=== PATIENT | male | born 1950 | race African-American/Black ===

== ENCOUNTER 2019-04-26 13:35 | Inpatient (IN) | payer MEDICARE, OTHER ==
[~2019-04-26] VITALS: Ht 172.7 cm; Wt 69.9 kg
--- NOTE | 2019-04-26 13:35 | NUR ---
Patient is here in our ER department for medical clearance by our ER doctor. This patient is accepted by Dr Olguin (psych doctor) for admission to our MHU/geriatric psych unit. WALTER Abel will be the assigned hospitalist for internal medicine needs of this patient. Addendum: 04/26/19 at 1657 by CSALE correction: Dr Olguin (psych) & EPIC documentation clerk hospitalist (WALTER Caicedo, not WALTER Abel) to care for this patient during the MHU admission.
[2019-04-26] MEDS ORDERED: BUSP15TA3 PO (13:47)
[2019-04-26] MEDS ORDERED: SERT50TA12 PO (13:47)
[2019-04-26] MEDS ORDERED: LAMO25TA5 PO (13:47)
--- NOTE | 2019-04-26 14:00 | NUR ---
PT WANDED BY FIRE PREVENTION CHIEF.
--- NOTE | 2019-04-26 14:21 | NUR ---
Patient is medically cleared by Dr Fong, pending urine sample still, endorsed to [facility] nurse Sergio and Alejandra accordingly.
[2019-04-26 14:29] LABS: BASOPHILS # (AUTO) 0.1 K/uL (0.0-8.0); BASOPHILS % (AUTO) 1.5 % (0.0-2.0); EOSINOPHILS # (AUTO) 0.2 K/uL (0.0-0.7); EOSINOPHILS % (AUTO) 6.2 % (0.0-7.0); HEMATOCRIT 44.2 % (36.7-47.1); HEMOGLOBIN 14.7 g/dL (12.5-16.3); LYMPHOCYTES # (AUTO) 1.4 K/uL (20.0-40.0); LYMPHOCYTES % (AUTO) 34.6 % (20.5-51.5); MEAN CORPUSCULAR HEMOGLOBIN 31.2 uug (23.8-33.4); MEAN CORPUSCULAR HGB CONC 33 g/dL (32.5-36.3); MONOCYTES # (AUTO) 0.4 K/uL (2.0-10.0); MONOCYTES % (AUTO) 9.6 % (0.0-11.0); NEUTROPHILS # (AUTO) 1.9 K/uL (1.8-8.9); NEUTROPHILS % (AUTO) 48.1 % (38.5-71.5); PLATELET COUNT (AUTO) 241 K/uL (152-348); RED BLOOD CELL COUNT(AUTO) 4.71 MIL/uL (4.06-5.63); WHITE BLOOD COUNT (AUTO) 3.9 K/uL (3.6-10.2)
[2019-04-26 14:32] LABS: CARBON DIOXIDE 23 mmol/L (21-32); CHLORIDE 109 mmol/L (98-107); GLUCOSE 100 mg/dL (74-106); POTASSIUM 3.7 mmol/L (3.5-5.1); UREA NITROGEN, BLOOD 16 mg/dL (7-18)
[2019-04-26 14:34] LABS: ETHANOL < 3 MG/DL (0-0)
[2019-04-26 14:45] LABS: ACETAMINOPHEN < 2.0 ug/mL (10-30); ALANINE AMINOTRANSFERASE 17 U/L (16-63); ALKALINE PHOSPHATASE 47 U/L (50-136); ASPARTATE AMINOTRANSFERASE 17 U/L (15-37); BILIRUBIN,DIRECT 0.1 mg/dL (0.0-0.2); BILIRUBIN,TOTAL 0.4 mg/dL (0.2-1.0); TOTAL PROTEIN, SERUM 7.5 g/dL (6.4-8.2)
[2019-04-26] MEDS ORDERED: MAGNESIUM HYDROXIDE 30 ML LIQUID UDC PO PRN (15:30)
[2019-04-26] MEDS ORDERED: ACETAMINOPHEN 325 MG TABLET PO PRN (15:30)
[2019-04-26] MEDS ORDERED: MAG HYDROX/AL HYDROX/SIMETH 30 ML LIQUID UDC PO PRN (15:30)
[2019-04-26 16:00] VITALS: BP 169/83
[2019-04-26] MEDS ORDERED: TEMAZEPAM 7.5 MG CAPSULE PO PRN (17:00)
--- NOTE | 2019-04-26 18:09 | NUR ---
GPS: RECEIVED PATIENT FROM ER, ADMITTED TO THE UNIT, ON 5149 HOLD FOR DTS, PATIENT AOX3, AMBULATORY, ISOLATIVE WITHDRAWN, DISPLAYS DEPRESSED AFFECT, PATIENT PARTIALLY PARTICIPATE WITH THE ADMISSION PROCESS, PATIENT REFUSE TO ANSWER QUESTION , VERBALIZES THAT "I JUST WANT TO GO TO SLEEP AND HOPEFULLY NOT TO WAKE UP", PATIENT ON SUICIDAL PRECAUTION, HISTORY OF BIPOLAR, HX OF SUBSTANCE ABUSE, WITH PRIOR SUICIDAL ATTEMPT,PATIENT ORIENTED TO THE UNIT AND TO HIS ROOM, NOTIFY PHYSICIAN ON THE ADMISSION, OFFERED SNACK AND WATER, KEPT COMFORTABLE, WILL CONTINUE MONITOR
[2019-04-26] MEDS: CLONAZEPAM 1 MG TABLET PO PRN (19:59)
--- NOTE | 2019-04-26 20:10 | NUR ---
GPS: Rec'd pt in bed awake. Appears restless and verbalizing suicidal ideations, denies having an active plan. Verbalizing regret for calling his counselor and sharing his suicidal thoughts which brought him here. Per pt, he does not hear voices but only hear thoughts. Denies that his thoughts are telling him do something. Offered Klonopin for his anxiety and pt agreed and took med. Jim well. All safety precautions in place. Frequent visual checks done. Will cont to monitor.
[2019-04-26 22:39] VITALS: BP 145/78
[2019-04-27 07:30] VITALS: BP 104/72
[2019-04-27] MEDS: SERTRALINE HCL 50 MG TABLET PO SCH (12:04)
[2019-04-27] MEDS: busPIRone 5 MG TABLET PO SCH ×2 (12:04→16:13)
--- NOTE | 2019-04-27 13:39 | NUR ---
Pt received this morning resting in bed, AOx3. Pt assessed, no acute distress, pain, or discomfort. Pt states feeling depressed but refuses to elaborate further, interacts minimally when engaged. Pt denies SI, no thoughts of self harm, and has no active plan at this time. Pt able to CFS at this time. Compliant with routine medication administration and wishing to be left to rest alone. All comfort and safety precautions in place. Will continue to monitor for safety.
[2019-04-27] MEDS: LAMOTRIGINE 25 MG TABLET PO SCH (16:13)
--- NOTE | 2019-04-27 19:35 | NUR ---
Received patient in bed, AOx3. No acute distress was noted. Interacts minimally when engaged. Denies SI. Safety measures maintained. Will continue to monitor.
[2019-04-27] MEDS: CLONAZEPAM 1 MG TABLET PO PRN (20:14)
[2019-04-27 20:39] VITALS: BP 124/84
--- NOTE | 2019-04-28 06:54 | NUR ---
GPS: slept 10 hrs through the night. resting in bed comfortably.
[2019-04-28 07:30] VITALS: BP 92/50
[2019-04-28] MEDS: busPIRone 5 MG TABLET PO SCH ×3 (08:32→16:41)
[2019-04-28] MEDS: SERTRALINE HCL 50 MG TABLET PO SCH (08:33)
[2019-04-28] MEDS: LAMOTRIGINE 25 MG TABLET PO SCH (09:15)
[2019-04-28 12:00] LABS: *BILIRUBIN,URIN NEGATIVE (NEGATIVE); *BLOOD, URINE NEGATIVE (NEGATIVE); *CLARITY,URINE CLEAR (CLEAR); *KETONES,URINE NEGATIVE (NEGATIVE); *UROBILINOGEN,URINE 0.2 E.U./dl (NORMAL); LEUKOCYTE ESTERASE ,URINE NEGATIVE (NEGATIVE); NITRITE, URINE NEGATIVE (NEGATIVE); UGLUCOSE NEGATIVE (NEGATIVE)
[2019-04-28 12:01] LABS: *COLOR,URINE DARK YELLOW (YELLOW)
[2019-04-28 12:08] LABS: RBC,URINE 0-3 /HPF (0-3)
[2019-04-28 12:10] LABS: BACTERIA,URINE NONE SEEN /HPF (NONE SEEN); MUCUS,URINE MANY /LPF (0-FEW); SQUAMOUS EPITHELIAL CELL,UR FEW /HPF (NONE SEEN); WBC,URINE 0-3 /HPF (0-3)
[2019-04-28 12:44] LABS: *AMPHETAMINE, URINE NEGATIVE (NEGATIVE); *BARBITURATE, URINE NEGATIVE (NEGATIVE); *CANNABINOID, URINE NEGATIVE (NEGATIVE); *COCCAINE, URINE NEGATIVE (NEGATIVE); *OPIATE, URINE NEGATIVE (NEGATIVE); *PHENCYCLIDINE SCREEN,URINE NEGATIVE (NEGATIVE)
[2019-04-28 16:00] VITALS: BP 115/72
--- NOTE | 2019-04-28 16:48 | NUR ---
Gps/Assemblyman Or Woman- Patient remains isolative, staying in bed most of the day, encouraged attending group therapy, eating in the dinning room.Poor Nutritional intake, refusing to eat, but will take fluids.Goes to the bathroom to void, goes right back to bed.
--- NOTE | 2019-04-28 17:11 | NUR ---
Initial Discharge Note: Patient is a 68 year old Male who is currently homeless. Patient is able to make decisions for himself. Patient will likely need placement. Parquet Floor Layer'S Helper will continue to meet with patient, and collaborate with patient, family, and MD on a safe and proper discharge.
[2019-04-28 19:44] VITALS: BP 103/68
--- NOTE | 2019-04-29 06:37 | NUR ---
Pt in bed resting,calm. He had shower in AM. Slept 9.0 hrs. Remains isolative. Safety measures rendered.
[2019-04-29 07:30] VITALS: BP 108/70
[2019-04-29] MEDS: SERTRALINE HCL 50 MG TABLET PO SCH (08:45)
[2019-04-29] MEDS: busPIRone 5 MG TABLET PO SCH ×3 (08:45→17:24)
[2019-04-29] MEDS: LAMOTRIGINE 25 MG TABLET PO SCH (08:46)
--- NOTE | 2019-04-29 09:24 | NUR ---
Gps/Critical Care Paramedic- Remains isolative, encouraged verbalizations of feelings, withdrawn, flat, prompted to take routine am. meds. reviewed with patient. Claimed no appetite to eat offered ensure with routine am meds.
[2019-04-29 16:12] VITALS: BP 95/53
[2019-04-29 20:30] VITALS: BP 114/73
[2019-04-29] MEDS: CLONAZEPAM 1 MG TABLET PO PRN (21:43)
--- NOTE | 2019-04-29 21:49 | NUR ---
Pt requested medication to help him sleep, Pt was brought Restoril 7.5mg, but Pt refused it. Medication wasted with licensed witness. Klonopin 1mg offered, Pt agreed to take medication.
[2019-04-30 07:30] VITALS: BP 113/72
[2019-04-30] MEDS: SERTRALINE HCL 50 MG TABLET PO SCH (08:19)
[2019-04-30] MEDS: busPIRone 5 MG TABLET PO SCH ×3 (08:20→16:52)
[2019-04-30] MEDS: LAMOTRIGINE 25 MG TABLET PO SCH (08:20)
--- NOTE | 2019-04-30 11:06 | NUR ---
Gps/Hairspring Setter- Patient remains isolative, withdrawn, encouraged continued verbalizations of his needs/feelings guarded . Encouraged attending his group therapy .
[2019-04-30 16:00] VITALS: BP 112/72
--- NOTE | 2019-04-30 18:15 | NUR ---
Gps/Windows Desktop Engineer- Asked patient about his right ear pain , claimed it comes and goes, at home he uses H202 per patient. Offered tylenol 650 mg po, c/o feeling anxious, clonopin 1 mg was given po. patient ate fairly well during dinner, making needs known to staff, adequate fluid intake.
[2019-04-30] MEDS: CLONAZEPAM 1 MG TABLET PO PRN (18:18)
[2019-04-30 19:46] VITALS: BP 106/68
[2019-05-01] MEDS: CLONAZEPAM 1 MG TABLET PO PRN ×2 (00:29→22:25)
[2019-05-01 07:30] VITALS: BP 104/72
[2019-05-01] MEDS: busPIRone 5 MG TABLET PO SCH ×3 (08:06→16:58)
[2019-05-01] MEDS: LAMOTRIGINE 25 MG TABLET PO SCH (08:06)
[2019-05-01] MEDS: SERTRALINE HCL 50 MG TABLET PO SCH (08:07)
[2019-05-01] MEDS ORDERED: VENLAFAXINE XR 37.5 MG CAP.SR.24H PO SCH (10:00)
[2019-05-01 15:38] VITALS: BP 109/69
[2019-05-01 20:17] VITALS: BP 109/71
[2019-05-02 07:30] VITALS: BP 105/65
[2019-05-02] MEDS: LAMOTRIGINE 25 MG TABLET PO SCH ×2 (09:00→16:25)
[2019-05-02] MEDS: SERTRALINE HCL 50 MG TABLET PO SCH ×2 (09:00→16:26)
[2019-05-02] MEDS: busPIRone 5 MG TABLET PO SCH ×3 (09:00→16:21)
[2019-05-02 16:06] VITALS: BP 102/57
[2019-05-02] MEDS: CLONAZEPAM 1 MG TABLET PO PRN (17:40)
[2019-05-02 20:09] VITALS: BP 117/76
[2019-05-03] MEDS: CLONAZEPAM 1 MG TABLET PO PRN ×2 (01:27→22:10)
[2019-05-03 07:28] LABS: BASOPHILS % (AUTO) 1.2 % (0.0-2.0); EOSINOPHILS # (AUTO) 0.5 K/uL (0.0-0.7); EOSINOPHILS % (AUTO) 12.6 % (0.0-7.0); HEMATOCRIT 42.3 % (36.7-47.1); HEMOGLOBIN 14.2 g/dL (12.5-16.3); MEAN CORPUSCULAR HEMOGLOBIN 31.6 uug (23.8-33.4); MEAN CORPUSCULAR HGB CONC 34 g/dL (32.5-36.3); MEAN CORPUSCULAR VOLUME 94.4 fL (73.0-96.2); MONOCYTES # (AUTO) 0.4 K/uL (2.0-10.0); MONOCYTES % (AUTO) 9.2 % (0.0-11.0); NEUTROPHILS # (AUTO) 0.9 K/uL (1.8-8.9); PLATELET COUNT (AUTO) 217 K/uL (152-348); RED BLOOD CELL COUNT(AUTO) 4.48 MIL/uL (4.06-5.63); WHITE BLOOD COUNT (AUTO) 3.9 K/uL (3.6-10.2)
[2019-05-03 07:30] VITALS: BP 100/60
[2019-05-03 07:45] LABS: CREATININE 1.1 mg/dL (0.6-1.3); POTASSIUM 3.9 mmol/L (3.5-5.1)
[2019-05-03] MEDS: VENLAFAXINE XR 75 MG CAP.SR.24H PO SCH (08:21)
[2019-05-03] MEDS: SERTRALINE HCL 50 MG TABLET PO SCH ×2 (08:21→09:00)
[2019-05-03] MEDS: busPIRone 5 MG TABLET PO SCH ×3 (08:22→16:35)
[2019-05-03] MEDS: LAMOTRIGINE 25 MG TABLET PO SCH (08:33)
[2019-05-03] MEDS ORDERED: VENLAFAXINE XR 37.5 MG CAP.SR.24H PO SCH (09:00)
[2019-05-03] MEDS ORDERED: SERTRALINE HCL 50 MG TABLET PO ONE (10:15)
--- NOTE | 2019-05-03 15:16 | NUR ---
Patient is alert, oriented x4, verbally responsive,no sob, resp even nonlabored,denied any pain, still verbalized feelings of hopelessness, however patient participated in shower, seems more involved in care, involved talking with nurses with positive mood.
[2019-05-03 16:00] VITALS: BP 107/68
--- NOTE | 2019-05-03 16:28 | NUR ---
Discharge Planning: International Controller faxed referral inquiry to [facility] [fax: [phone]].
[2019-05-03 20:37] VITALS: BP 110/72
--- NOTE | 2019-05-03 22:30 | NUR ---
received to care, lying in bed, isolative, but pleasant upon approach. denied SI, but acknowledging feeling that way, this morning.requested PRN klonopin for anxiety, which was given at 2210, along with a snack. as of 2300, he appears to be asleep. no distress noted. will continue to monitor closely.
[2019-05-04 07:30] VITALS: BP 105/68
[2019-05-04] MEDS: busPIRone 5 MG TABLET PO SCH ×3 (08:59→16:17)
[2019-05-04] MEDS: LAMOTRIGINE 25 MG TABLET PO SCH (08:59)
[2019-05-04] MEDS: VENLAFAXINE XR 75 MG CAP.SR.24H PO SCH (09:00)
[2019-05-04] MEDS: SERTRALINE HCL 50 MG TABLET PO SCH (09:01)
--- NOTE | 2019-05-04 12:36 | NUR ---
Gps/Thermal Molder- Remains isolative, withdrawn , refusing to eat lunch claimed he is not hungry, encouraged to eat , offered ensure. Complaint with his routine meds. min. prompting. Encouraged verbalizations of his feelings and needs, encouraged attending his group therapy. pt. guarded.
[2019-05-04 16:00] VITALS: BP 106/73
[2019-05-04 20:20] VITALS: BP 122/80
--- NOTE | 2019-05-04 22:00 | NUR ---
received to care, lying in bed, isolative, but pleasant upon approach. denied SI, or desire to harm himself. as of 2299, he appears to be asleep. no distress noted. will continue to monitor closely.
[2019-05-04] MEDS: CLONAZEPAM 1 MG TABLET PO PRN (22:51)
--- NOTE | 2019-05-04 22:51 | NUR ---
PRN klonopin, given for anxiety.
--- NOTE | 2019-05-04 23:30 | NUR ---
appears to be asleep. no distress noted.
--- NOTE | 2019-05-05 06:40 | NUR ---
slept 8.5 hours
[2019-05-05 07:30] VITALS: BP 94/56
--- NOTE | 2019-05-05 08:06 | NUR ---
Gps/Supervisor Metal Hanging- Patient's sister Remington called, wants to review patients' medications and side effects, Bill(pt) gave ok to give information to his sister, pt. was able to talked to his sister.
--- NOTE | 2019-05-05 08:34 | NUR ---
DC NOTE: Patient will be discharged to [facility] [[address] [place] [address]; ]. Please arrange an ambulance for this patient at 12:00pm. Spoke to mar Forman ultrasonic seaming machine operator [ ] at facility, who states they are ready to accept patient today. Patient is A&Ox3-4. Patient is currently denying suicidal and homicidal ideation. Patient is aware and agreeable with discharge plans. Patient will follow up at the facility with Dr. Kearney (manager style) and Dr. Olguin (psychiatrist). Patients sister, Remington Jessica [ ],.received update and she is aware and agreeable with patients discharge plan. Patient was provided with the homeless mcfp packet, which includes a list of emergency shelters, housing resources, drop in centers, and showers/hot meals centers. This also included the Homeless Information Hotline (335)-788-6789 or 211, [employer] for [employer] , and the [facility] (802)-835-1023. Patient was given outpatient mental health resources to [facility] , Venecia Guillen , and the National Suicide Prevention Lifeline . Patient has signed the Homeless Waiver Form and a copy was placed in his chart.
[2019-05-05] MEDS: SERTRALINE HCL 50 MG TABLET PO SCH (09:03)
[2019-05-05] MEDS: VENLAFAXINE XR 75 MG CAP.SR.24H PO SCH (09:04)
[2019-05-05] MEDS: LAMOTRIGINE 25 MG TABLET PO SCH (09:04)
[2019-05-05] MEDS: busPIRone 5 MG TABLET PO SCH ×2 (09:04→13:10)
--- NOTE | 2019-05-05 12:28 | NUR ---
Gps/Search Engine Marketing Manager- Patient was well informed of the his discharge plan this pm, Remington(sister) aware of the discharge plan to [facility]. All belongings was given back to patient. match up worker time at 1215 this pm via ambulance.
--- NOTE | 2019-05-05 13:00 | NUR ---
Gps/Drawer In Jacquard Loom- Called [facility], report was given to Glenda Ward. All belongings given back to patient.No complaints noted, denies S.I/H.I. Faxed progress notes received by Mauricio(Desktop Publishing Specialist)
--- NOTE | 2019-05-05 13:09 | NUR ---
FIREARMS REPORT: harvest worker field crop completed and submitted a [employer] firearms report for a 5250 GD certification.
--- NOTE | 2019-05-05 13:16 | NUR ---
Gps/Naval Aircrewman Tactical Helicopter- Discharged to [facility], via ambulance, no complaints no discomfort noted,.
== END 2019-05-05 13:15 | DRG 885 ==
LOC: ER 13:35 → GPS 14:04
PROVIDERS: ADMIT Psychiatry & Neurology Psychiatry
DX: F31.30 Bipolar disorder, current episode depressed, mild or moderate severity, unspecified (principal); Z91.5 Personal history of self-harm; F10.10 Alcohol abuse, uncomplicated; Y90.0 Blood alcohol level of less than 20 mg/100 ml; Z59.0 Homelessness
CPT/HCPCS: 36415; 80307; 85025; 93005; 97116; 97530; A4663; G0480; G0480-TC